=== PATIENT | male | born 1985 | race Caucasian/White ===

== ENCOUNTER 2017-04-02 23:55 | Emergency (ER) | payer BC ==
[2017-04-03] MEDS ORDERED: Ibuprofen 800 MG TAB ONE (00:14)
[2017-04-03] MEDS ORDERED: Amoxicillin/Potassium Clav 875 MG TAB ONE (00:14)
== END 2017-04-03 00:18 | disposition home or self-care (01) ==
LOC: BURERS 23:55
DX: H66.92 Otitis media, unspecified, left ear (principal); I10 Essential (primary) hypertension; Z87.891 Personal history of nicotine dependence; Z79.899 Other long term (current) drug therapy
CPT/HCPCS: 99282